=== PATIENT | female | born 1995 | race Caucasian/White ===

== ENCOUNTER 2017-02-02 10:40 | Emergency (ER) | payer BC ==
[~2017-02-02] VITALS: Wt 57.2 kg
[~2017-02-02 10:40] MED LIST: OMEP20CA9 PO
[2017-02-02] MEDS ORDERED: KETOROLAC 30 MG INJ IM STA (11:27)
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
--- NOTE | 2017-02-02 13:34 | RADRPT ---
PROCEDURE: XR Right Hand CLINICAL INDICATION: Punched a concrete wall TECHNIQUE: AP, oblique, and lateral radiographs were submitted. COMPARISON: None FINDINGS: Osseous structures: appear well mineralized and intact with no fracture or destructive process iden tified. Joint spaces: are well maintained, with no significant spurring, erosion or joint effusion evident. Soft tissues: appear unremarkable. IMPRESSION: Unremarkable right hand. Physician Nelsy Date Time Electronically viewed and signed by Saad Knutson Physician on 02/02/2017 13:34 /
[2017-02-02] MEDS ORDERED: IBUP-1542 PO (13:52)
[2017-02-02] MEDS ORDERED: HYDR-906 PO (14:26)
== END 2017-02-02 14:38 | disposition home or self-care (01) ==
LOC: FTE 10:40
DX: S60.221A Contusion of right hand, initial encounter (principal); W22.8XXA Striking against or struck by other objects, initial encounter; Y92.9 Unspecified place or not applicable
CPT/HCPCS: 29125; 73130; J1885; 96372

== ENCOUNTER 2018-01-20 12:50 | Emergency (ER) | END 2018-01-20 16:01 | disposition home or self-care (01) ==

== ENCOUNTER 2018-04-06 14:13 | Emergency (ER) | END 2018-04-06 16:15 | disposition home or self-care (01) ==